=== PATIENT | male | born 1950 | race Caucasian/White ===

== ENCOUNTER → 2018-01-11 | Outpatient (CLI) | payer MEDICARE, OTHER ==
--- NOTE | 2018-01-11 13:41 | XR ---
EXAMINATION TYPE: XR foot complete bilateral DATE OF EXAM: 01/11/2018 COMPARISON: NONE HISTORY: 67-year-old male with bilateral foot pain TECHNIQUE: 3 views each side FINDINGS: Degenerative changes scattered throughout such as the left third DIP joint and mild within the bilate ral first MTP joints. No juxta-articular erosions are seen. Some bony fragmentation near the lateral aspect of the sesamoids suggesting sequela of prior injury including capsular injury giving bony spur ring at the plantar lateral first proximal phalangeal base. Small plantar calcaneal spurs. IMPRESSION: 1. No acute osseous normality seen. 2. Degenerative change at the left third DIP joint could be sequela of prior injury or even prior gou t given the patient's history 3. Mild first MTP joint only on both sides.
== END | disposition home or self-care (01) ==
LOC: RADXRYALE 09:49
PROVIDERS: ATTEND Family Medicine
DX: M19.072 Primary osteoarthritis, left ankle and foot (principal); M79.671 Pain in right foot

== ENCOUNTER → 2022-01-31 | Outpatient (CLI) | payer MEDICARE ==
--- NOTE | 2022-01-31 14:48 | XR ---
EXAMINATION TYPE: XR shoulder complete RT DATE OF EXAM: 01/31/2022 COMPARISON: NONE HISTORY: Pain TECHNIQUE: Shoulder examined in 3 projections FINDINGS: The humeral head articulates with the glenoid. The acromio-clavicular junction is hypertrophied with some inferior spurring which can contribute to impingement syndrome. No acute fractures or dislocations are evident. A follow up study can be performed 7-10 days from acute trauma for continued pain. IMPRESSION: 1. No acute osseous abnormality right shoulder . 2. Acromioclavicular joint hypertrophy
== END | disposition home or self-care (01) ==
LOC: RADXRYALE 11:23
PROVIDERS: ATTEND Family Medicine
DX: M19.011 Primary osteoarthritis, right shoulder (principal)

== ENCOUNTER → 2022-02-24 | Outpatient (CLI) | payer MEDICARE ==
--- NOTE | 2022-02-24 17:27 | MR ---
EXAMINATION TYPE: MR shoulder RT wo con DATE OF EXAM: 02/24/2022 COMPARISON: Radiograph 01/31/2022 HISTORY: 71-year-old male M25.511, M75.101, Rt shoulder pain TECHNIQUE: Multiplanar, multisequence imaging of the right shoulder is performed without contrast. FINDINGS: There appears to be a incomplete longitudinal split tear at the junction of the intracapsul ar and extracapsular portions of the long head biceps tendon. There is medial subluxation along the bicipital groove with prominent intrasubstance and bursal sided tearing of the subscapularis tendon. Moderate tenosynovial fluid along the bicipital groove. There is severe degenerative change at the acromioclavicular joint with a joint space narrowing and m arginal spurring. Large inferior spur impresses on to the myotendinous junction of the supraspinatus. There is a mild subacromial/subdeltoid bursal effusion. There is a full-thickness tear involving the anterior to mid supraspinatus tendon measuring 1.9 cm AP . Fibers are retracted by up to 3.3 cm to below the acromion. Intrasubstance and articular sided tear ing extends into the anterior infraspinatus tendon fibers. There is heterogeneity of the remaining in tact spinalis infraspinatus tendon. Minimal fatty streaks seen within the infraspinatus muscle belly. No significant muscle atrophy. The posterior labrum is degenerative and blunted. Mild thinning of glenohumeral joint articular carti edith. Mild joint effusion. No Hill-Sachs deformity or os acromiale. Patchy red marrow is present and can be seen with anemia, obesity, smoking, and chronic disease. IMPRESSION: 1. Full-thickness rotator cuff tear involving the anterior to mid supraspinatus tendon (1.9 cm AP wit h fibers retracted to below the acromion by 3.3 cm). Orthopedic referral recommended. No significant muscle atrophy. 2. Intrasubstance and articular sided tearing extends back into the anterior infraspinatus tendon fib ers. 3. Multiple areas of intrasubstance and bursal sided tearing of the subscapularis tendon allowing for medial subluxation of the long head biceps tendon. 4. Short segment partial thickness longitudinal tear at the junction of the intracapsular and extraca psular portions of the long head biceps tendon. 5. Severe AC joint OA with subacromial impingement. 6. Mild thinning of glenohumeral joint articular cartilage. Degenerative and blunted posterior glenoi d labrum.
== END | disposition home or self-care (01) ==
LOC: RADMRIMAIN 11:29
PROVIDERS: ATTEND Family Medicine
DX: M75.111 Incomplete rotator cuff tear or rupture of right shoulder, not specified as traumatic (principal); M19.011 Primary osteoarthritis, right shoulder; M24.111 Other articular cartilage disorders, right shoulder

== ENCOUNTER 2022-05-08 11:07 | Day surgery (SDC) | payer MEDICARE ==
[2022-05-02 16:26] VITALS: BMI 36.6
--- NOTE | 2022-05-07 22:19 | HP ---
HISTORY AND PHYSICAL DATE OF SURGERY: 05/08/2022. HISTORY OF PRESENT ILLNESS: Loki Suresh is a 71-year-old patient seen with progressive right shoulder pain. Options for treatment were discussed with him, he elected to proceed with right shoulder arthroscopy. Consent regarding the procedure was obtained. Clearance was provided by Dr. Richard. PAST MEDICAL HISTORY: Hypertension, hyperlipidemia, gout. PAST SURGICAL HISTORY: Noncontributory. DAILY MEDICATIONS: 1. Advil. 2. Allopurinol. 3. Atenolol. 4. Vitamins. ALLERGIES: None. SOCIAL HISTORY: Denies tobacco use. PHYSICAL EVALUATION OF RIGHT SHOULDER: Flexion is 130 degrees, abduction is 80 degrees. External rotation is 40 degrees with pain, weakness, tenderness along the anterior lateral acromion and rotator cuff insertion site impingement positive at 90 degrees. Cross-body adduction sign is positive. Drop-arm sign is positive. Distal neurovascular exam is intact. RADIOGRAPHS: Right shoulder radiographs revealed a type 3 acromion along with severe acromioclavicular joint osteoarthritis. Right shoulder MRI revealed a rotator cuff tendon tear, partial biceps tendon tear, and acromioclavicular joint osteoarthritis. IMPRESSION: 1. Right shoulder impingement with rotator cuff tear. 2. Right shoulder acromioclavicular joint osteoarthritis. 3. Right shoulder partial long head biceps tendon tear. 4. Hypertension. 5. Hyperlipidemia. PLAN: Right shoulder arthroscopy with subacromial decompression, arthroscopic rotator cuff repair, arthroscopic Dante procedure and debridement. MMODL / IJN: [id number] /
[2022-05-08] MEDS ORDERED: ONDANSETRON 4 MG/2 ML VIAL IVP ONE (11:40)
[2022-05-08] MEDS ORDERED: DEXAMETHASONE SOD PHOSPHATE 4 MG/ML 1 ML VIAL IV ONE (11:40)
[2022-05-08] MEDS ORDERED: LACTATED RINGERS 1,000 ML IV SCH (11:40)
[2022-05-08] MEDS ORDERED: LIDOCAINE 1% (10MG/ML) FOR IV START INTRADERMA PRN (11:40)
[2022-05-08] MEDS ORDERED: MIDAZOLAM 2 MG/2 ML VIAL IVP ONE (12:38)
[2022-05-08] MEDS ORDERED: fentaNYL (PF) 50 MCG/ML 2 ML AMP ONE (13:15)
[2022-05-08] MEDS ORDERED: GLYCOPYRROLATE 0.2 MG/ML 2 ML VIAL ONE (13:15)
[2022-05-08] MEDS ORDERED: ROPIVACAINE 5 MG/ML 30 ML VIAL ONE (13:15)
[2022-05-08] MEDS ORDERED: SUCCINYLCHOLINE CHLORIDE 200 MG/10 ML VIAL IV ONE (13:15)
[2022-05-08] MEDS ORDERED: PHENYLEPHRINE-0.9% NACL SYG 1,000 MCG/10 ML SYRINGE ONE (13:15)
[2022-05-08] MEDS ORDERED: DEXAMETHASONE SOD PHOSPHATE 4 MG/ML 1 ML VIAL ONE (13:15)
[2022-05-08] MEDS ORDERED: ROCURONIUM 10 MG/ML (5 ML VIAL) IV ONE (13:15)
[2022-05-08] MEDS ORDERED: PROPOFOL 10 MG/ML 20 ML VIAL IV ONE (13:15)
[2022-05-08] MEDS ORDERED: MIDAZOLAM 2 MG/2 ML VIAL ONE (13:15)
[2022-05-08] MEDS ORDERED: LIDOCAINE 2% INJ 20 MG/ML (2 ML VIAL) ONE (13:15)
[2022-05-08] MEDS ORDERED: NEOSTIGMINE 1 MG/ML 10 ML VIAL ONE (13:15)
[2022-05-08] MEDS ORDERED: LACTATED RINGERS 1,000 ML IV ONE (14:29)
--- NOTE | 2022-05-08 14:51 | P.OP ---
Date of Procedure: 05/08/22 Preoperative Diagnosis: Right shoulder impingement Postoperative Diagnosis: 1. Right shoulder rotator cuff tear 2. Right shoulder impingement 3. Right shoulder acromioclavicular joint osteoarthritis 4. Right shoulder partial long head biceps tendon tear Procedure(s) Performed: 1. Right shoulder arthroscopic rotator cuff repair 2. Right shoulder arthroscopic subacromial decompression 3. Right shoulder arthroscopic Dante procedure 4. Right shoulder arthroscopic biceps tenotomy Implants: 44.75 Arthrex swivel lock anchors Anesthesia: GETA, regional (Interscalene block) Surgeon: Patrick Burch Programming Instructor #1: Rio Candelario Estimated Blood Loss (ml): 11 Pathology: none sent Condition: stable Disposition: PACU Indications for Procedure: 71-year-old patient seen with progressive right shoulder pain. After treatment options were discussed, he elected to proceed with arthroscopy. Operative Findings: See description of procedure Description of Procedure: Patient underwent an interscalene block by department of anesthesia. The patient was then taken to the operative suite. The patient underwent a general anesthetic by the department of anesthesia. The patient was placed into a lateral position and secured. There was appropriate padding of the bony prominence. Right shoulder was then prepped and draped in normal sterile orthopedic fashion. We placed the extremity in 10 pounds of longitudinal traction. A posterior incision was now made for a posterior working portal site. The trocar and cannula were inserted into the glenohumeral joint. Arthroscopy was initiated. Spinal needle was now inserted anteriorly, to ascertain the anterior working portal site. An incision was now made in that area, a trocar was inserted followed by a probe. There was mild grade 1 chondromalacia diffusely about the glenohumeral joint. There was some partial tearing of the long head biceps tendon. There was some superficial fraying of the superior labrum. I performed an arthroscopic biceps tenotomy. I debrided the superficial fraying of the labrum down to stable labral tissue. The residual labrum was probed and was found to be stable. Instruments were now removed from the glenohumeral joint. Utilizing the posterior working portal site, the trocar and cannula were inserted into the subacromial space. Arthroscopy initiated. I made an incision 2 fingerbreadths lateral to the acromion. I introduced my trocar followed by my [employer] ablator. I now began ablating thick subacromial bursal tissue, which exposed the undersurface of the anterior acromion. There was diminished subacromial space. There was a very prominent anterior acromion. A motorized bur was introduced and a subacromial decompression was performed. I also excised some osteophytes off the inferior aspect of the distal clavicle. The AC joint was visualized and noted to be fairly arthritic. The motorized bur was introduced in the anterior portal site and a Dante procedure was performed without difficulty, decompressing the AC joint nicely. I turned my attention to the rotator cuff. There was a 3.5 cm rotator cuff tear. I debrided the margins getting down to stable tendon tissue. I introduced my motorized bur and abraded the footprint area, getting some petechial bleeding. I now made an accessory portal site off the lateral aspect of the acromion. I punched 2 holes medial for medial row fixation with the assistance of Andi LANE carefully tapping the punch with a mallet as I held the punch and the camera. I now introduced both anchors into the pre-punched holes and Andi LANE tapped them with the mallet as I held anchors and the camera. Andi LANE now screwed the anchors in place a while I held the anchor guide and camera. All 8 limbs of suture were now passed through good bites of rotator cuff tendon. I now punched 2 holes for lateral row fixation again I held the punch and camera while Andi LANE used a mallet to tap in the punch. We now passed sutures through both anchors and individually I introduced the anchors into the pre-punch holes I held the anchor guide in position with one hand holding the camera with the other hand while Andi LANE tensioned the sutures and screwed in the anchors one at a time. All residual suture limbs were now clipped. We had good compression of the tendon along the entire footprint. Instruments now removed from the portal sites. All portal sites were approximated with nylon suture. Sterile dressings were applied followed by a shoulder immobilizer. Rio LANE assisted in this complex case. The patient was awakened, transferred to a bed, and taken to recovery in stable condition.
[2022-05-08] MEDS: HYDROmorphone 0.5 MG/0.5 ML SYRINGE IVP PRN ×2 (15:00→15:05)
[2022-05-08 15:16] VITALS: TEMP 98
[2022-05-08 15:57] VITALS: RESP 16
[2022-05-08 16:11] VITALS: BP 109/70; PULSE 57
--- NOTE | 2022-05-09 11:14 | P.ANPRN ---
Procedure Note - Anesthesia - Nerve Block Performed Right Interscalene Single Time Out Performed: Yes Date of Procedure: 05/08/22 Procedure Start Time: 12:38 Procedure Stop Time: 12:47 Location of Patient: PreOp Indication: Acute Post-Operative Pain, Requested by Surgeon Sedation Type: Sedate with meaningful contact maintained Preparation: Sterile Prep Position: Supine Needle Types: Pajunk Needle Gauge: 21 Ultrasound used to visualize needle placement: Yes Ultrasound used to observe medication spread: Yes Blood Aspirated: No Pain Paresthesia on Injection Noted: No Resistance on Injection: Normal Image Stored and Saved: Yes Events: Uneventful and Well Tolerated (Ropivacaine 0.5% 20 mL plus dexamethasone 4 mg)
== END 2022-05-08 16:52 | disposition home or self-care (01) ==
LOC: OR 11:07
PROVIDERS: ATTEND Orthopaedic Surgery
DX: M75.111 Incomplete rotator cuff tear or rupture of right shoulder, not specified as traumatic (principal); M75.41 Impingement syndrome of right shoulder; M19.011 Primary osteoarthritis, right shoulder; G89.18 Other acute postprocedural pain; I10 Essential (primary) hypertension; E78.5 Hyperlipidemia, unspecified; Z79.899 Other long term (current) drug therapy
CPT/HCPCS: 64415; 76942; 29827; 29826; C1713 ×2; J2250; J0330; J1100; J2710; J0690; J2405; J3010; J2795; J2370; J2704; J1170; J2001

== ENCOUNTER → 2024-11-01 | Outpatient (CLI) | payer MEDICARE ==
--- NOTE | 2024-11-01 16:30 | XR ---
EXAMINATION TYPE: XR knee complete LT DATE OF EXAM: 11/01/2024 4:22 PM COMPARISON: None CLINICAL INDICATION: Male, 74 years old with history of [id number] LT KNEE PAIN; YCH, pain TECHNIQUE: XR knee complete LT 3 views submitted. FINDINGS: No evidence of any acute osseous pathology or soft tissue swelling. Tricompartmental oste ophyte formation involving the femoral condyles, tibial plateau and patella. Mild joint space narrowi ng. Patellar tendon enthesophyte. IMPRESSION: 1. No acute osseous pathology. 2. Mild to moderate tricompartmental osteoarthritic changes. [facility], , 11/01/2024 4:28 PM
== END | disposition home or self-care (01) ==
LOC: RADXRYALE 16:11
PROVIDERS: ATTEND Family Medicine
DX: M17.12 Unilateral primary osteoarthritis, left knee (principal)